=== PATIENT | female | born 1985 | race Caucasian/White ===

== ENCOUNTER 2018-04-10 07:00 | Day surgery (SDC) | payer BC ==
[2018-04-08 12:05] LABS: BASOPHILS 0.2 % (0-2); EOSINOPHILS 0.9 % (0-7); HEMATOCRIT 40.8 % (36.0-48.0); HEMOGLOBIN 13.4 g/dL (12-16); IMMATURE GRANULOCYTES 0.2 % (0-5); LYMPHOCYTES 31.4 % (15-50); MCH 30.7 pg (26.0-34.0); MCHC 32.8 g/dL (31.0-37.0); MCV 93.4 fL (80.0-100.0); MEAN PLATELET VOLUME 10.1 fL (7.4-10.4); MONOCYTES 6.1 % (2-11); NEUTROPHILS 61.2 % (40-80); PLATELET COUNT 182 10x3/uL (130-400); RBC 4.37 10x6/uL (4.00-5.40); RDW 13.3 % (11.5-14.5); WBC 4.4 10x3/uL (4.8-10.8)
--- NOTE | ~2018-04-10 | OP ---
PATIENT NAME: DAVID BAJWA MEDICAL RECORD: [id number] :89 LOCATION:D.OPS ADMISSION DATE: SURGEON: AMBIKA SALDANA MD DATE OF OPERATION: 04/10/2018 PREOPERATIVE DIAGNOSES: 1. Menorrhagia. 2. 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 POSTOPERATIVE DIAGNOSES: 1. Menorrhagia. 2. 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 PROCEDURES: Hysteroscopy and D and C. SURGEON: Ambika Saldana MD ESTIMATED BLOOD LOSS: Minimal. INTRAVENOUS FLUIDS: Per anesthesia record. HYSTEROSCOPIC FLUID LOSS: Approximately 200 cc of 0.9 normal saline. SPECIMENS: Endometrial curettings. COMPLICATIONS: None apparent. FINDINGS: 1. Grossly normal-appearing external genitalia and a single cervical os. 2. Bicornuate uterus with the left horn greater sized than the right. COMPLICATIONS: None apparent. SPECIMENS: Endometrial curettings times 2. DESCRIPTION OF THE PROCEDURE: The patient was taken to the operating room where general anesthesia was achieved without any difficulty. The patient was then prepped and draped in normal sterile fashion in the dorsal lithotomy position in the [facility]. At this point, the patient was prepped and draped and the bladder was drained of approximately 100 cc of clear yellow urine. At this point, a Graves speculum was placed into the vagina. Cervix was identified and grasped on its anterior lip with a single tooth tenaculum. The uterus was carefully dilated to approximately 6 mm, at which point, the hysteroscope was introduced into the cervix, bifurcation into 2 uterine horns was readily evident just superior to the internal os of the cervix. Survey of both canals was performed followed by curettage of each horn separately. Following curettage, the hysteroscope was then replaced into the uterus to make sure evidence of endometrial sampling from both horns had been achieved. Once confirmed, the hysteroscope was removed followed by the single-tooth tenaculum and the speculum. The patient tolerated the procedure well and was transported to postanesthesia recovery stable without incident. OPERATIVE REPORT [id number] DAVID BAJWA TRANSINT:[id number] Voice Confirmation ID: [id number] DOCUMENT ID: [id number] AMBIKA SALDANA MD at 1844 CC: [id number] DICTATION DATE: 04/18/182101 [employer] PIPE: 04/18/182157 [facility] 04/10/18 [facility] [address] [place] [address]
[~2018-04-10 07:00] MED LIST: BEYAZ 28 TABLE1 EACH PO
[2018-04-10 08:20] VITALS: BP 129/68; BMI 37.4
[2018-04-10 08:38] LABS: HCG URINE NEGATIVE (NEGATIVE)
== END 2018-04-10 12:10 | disposition home or self-care (01) ==
LOC: D.OPS 07:00 → D.PAN 09:30 → D.OPS 12:10
PROVIDERS: Obstetrics & Gynecology
DX: N92.0 Excessive and frequent menstruation with regular cycle (principal); E66.01 Morbid (severe) obesity due to excess calories; Z68.37 Body mass index [BMI] 37.0-37.9, adult; Z01.812 Encounter for preprocedural laboratory examination